=== PATIENT | female | born 1950 | race Caucasian/White ===

== ENCOUNTER → 2023-08-20 | Outpatient (CLI) | payer MEDICARE | LOC: M PLAIMG 13:35 | PROVIDERS: ATTEND Internal Medicine Pulmonary Disease | DX: R91.1 Solitary pulmonary nodule (principal) ==

== ENCOUNTER → 2023-09-23 | Outpatient (CLI) | payer MEDICARE | LOC: M PLARAD 07:31 | PROVIDERS: ATTEND Internal Medicine Pulmonary Disease | DX: R91.1 Solitary pulmonary nodule (principal) | CPT/HCPCS: 78815; A9552 ==

== ENCOUNTER → 2023-10-14 | Outpatient (CLI) | payer MEDICARE | LOC: M SLEEP 20:00 | PROVIDERS: ATTEND Internal Medicine Pulmonary Disease | DX: G47.33 Obstructive sleep apnea (adult) (pediatric) (principal); R06.83 Snoring ==

== ENCOUNTER → 2024-01-02 | Outpatient (CLI) | payer MEDICARE | LOC: M SLEEP 20:00 | PROVIDERS: ATTEND Internal Medicine Pulmonary Disease | DX: G47.33 Obstructive sleep apnea (adult) (pediatric) (principal) ==

== ENCOUNTER → 2024-02-28 | Outpatient (CLI) | payer MEDICARE | LOC: M RAD 14:27 | PROVIDERS: ATTEND Internal Medicine | DX: E04.1 Nontoxic single thyroid nodule (principal) ==

== ENCOUNTER → 2024-03-26 | Outpatient (CLI) | payer MEDICARE ==
[~2024-03-26] MED LIST: LIDOCAINE 1% MDV 20ML VIAL As Ordered ONE
[2024-03-26 13:20] VITALS: TEMP 96.6
[2024-03-26 13:55] VITALS: BP 170/90; O2SAT 97
== END ==
LOC: M IRPRO 13:07
PROVIDERS: ATTEND Internal Medicine
DX: E07.9 Disorder of thyroid, unspecified (principal)

== ENCOUNTER → 2024-05-01 | Outpatient (CLI) | payer MEDICARE | LOC: M PLAIMG 09:29 | PROVIDERS: ATTEND Internal Medicine Pulmonary Disease | DX: R91.1 Solitary pulmonary nodule (principal); K80.20 Calculus of gallbladder without cholecystitis without obstruction; D35.02 Benign neoplasm of left adrenal gland; N60.22 Fibroadenosis of left breast; Z95.2 Presence of prosthetic heart valve ==

== ENCOUNTER → 2025-03-03 | Outpatient (CLI) | payer MEDICARE ==
[2025-03-03 12:41] LABS: FREE T4 1.27 NG/DL (0.89-1.76)
== END ==
LOC: M LAB 11:17
PROVIDERS: ATTEND Nurse Practitioner Family
DX: E04.2 Nontoxic multinodular goiter (principal)

== ENCOUNTER → 2025-04-20 | Outpatient (CLI) | payer MEDICARE | LOC: M RAD 12:33 | PROVIDERS: ATTEND Internal Medicine Pulmonary Disease | DX: R91.1 Solitary pulmonary nodule (principal) ==